=== PATIENT | male | born 1995 | race Caucasian/White ===

== ENCOUNTER 2020-07-21 09:37 | Emergency (ER) | payer BC ==
[~2020-07-21 09:37] MED LIST: BENTYL 20MG TAB20 MG PO; ZOFRAN 4 MG TAB4 MG PO
[2020-07-21 10:15] LABS: HEMOGLOBIN 15.8 gm/dl (14.0-17.5); RED BLOOD COUNT 5.29 M/UL (4.20-5.50); WHITE BLOOD COUNT 6.6 K/UL (4.5-11.0)
[2020-07-21 10:36] LABS: BUN/CREATININE RATIO 15 (0-10)
[2020-07-21] MEDS ORDERED: ZOFRAN4 MG PO (12:36)
== END 2020-07-21 12:48 | disposition home or self-care (01) ==
LOC: ER1 09:37
PROVIDERS: Physician Assistant
DX: M79.10 Myalgia, unspecified site (principal); R53.83 Other fatigue; R11.0 Nausea; R19.7 Diarrhea, unspecified; R53.1 Weakness; R10.11 Right upper quadrant pain; I10 Essential (primary) hypertension; E11.9 Type 2 diabetes mellitus without complications; Z20.828 Contact with and (suspected) exposure to other viral communicable diseases
CPT/HCPCS: 76705; 80053; 85025; 99285; U0003